=== PATIENT | male | born 1955 | race Caucasian/White ===

== ENCOUNTER 2024-06-22 15:56 | Outpatient (CLI) | payer BC ==
[2024-06-22 16:55] LABS: Hemoglobin 16.6 g/dL (13.5-17.5)
[2024-06-22 17:18] LABS: Anion Gap 17 mmol/L (10-20); BUN (Urea Nitrogen) 21 mg/dL (8.4-25.7); Calc. Creatinine Clearance 0 mL/min (70-130); Calcium 10.8 mg/dL (7.8-10.44); Carbon Dioxide 28 mmol/L (23-31); Chloride 101 mmol/L (98-107); Estimated GFR 50; Glucose 109 mg/dL (80-115); Sodium 142 mmol/L (136-145)
== END 2024-06-22 15:57 | disposition home or self-care (01) ==
LOC: CSHLAB 15:56
PROVIDERS: ATTEND Otolaryngology
DX: Z01.818 Encounter for other preprocedural examination (principal); R09.81 Nasal congestion; J34.3 Hypertrophy of nasal turbinates; J34.2 Deviated nasal septum
CPT/HCPCS: 80048; 85014; 85018; 93005; 93010

== ENCOUNTER 2024-07-05 06:15 | Day surgery (SDC) | payer BC ==
[2024-06-25 12:10] VITALS: BMI 33.6
[2024-07-05] MEDS ORDERED: EPINEPHrine 1 MG/ML VIAL ONE (06:38)
[2024-07-05] MEDS ORDERED: Lidocaine 1% (PF) 30 ML VIAL ONE (06:39)
[2024-07-05] MEDS ORDERED: CEFAZOLIN 2 GM VIAL ONE (06:39)
[2024-07-05] MEDS ORDERED: Ondansetron PF 4 MG/2 ML Vial ONE (08:00)
[2024-07-05] MEDS ORDERED: Dexamethasone 20 MG/5 ML VIAL ONE (08:00)
[2024-07-05] MEDS ORDERED: SUGAMMADEX SODIUM 200 MG/2 ML VIAL ONE (08:00)
[2024-07-05] MEDS ORDERED: Rocuronium Bromide 10 MG/ML (10ML VIAL) ONE ×2 (08:00→10:16)
[2024-07-05] MEDS ORDERED: PROPOFOL 40 ML ONE (08:01)
[2024-07-05] MEDS ORDERED: fentaNYL 50 mcg/mL 1 mL Vial ONE ×4 (08:01→12:20)
[2024-07-05] MEDS ORDERED: Midazolam HCl 2 mg/2 ml Vial ONE (08:01)
[2024-07-05] MEDS ORDERED: ePHEDrine Sulfate 50 MG/10 ML VIAL ONE (08:38)
[2024-07-05] MEDS ORDERED: Glycopyrrolate 0.2 MG/ML 5 ML SYRINGE ONE (08:57)
[2024-07-05] MEDS ORDERED: Vasopressin 20 UNITS/ML VIAL ONE (09:03)
[2024-07-05] MEDS ORDERED: Tranexamic Acid 1,000 MG/10 ML VIAL ONE (09:06)
[2024-07-05] MEDS ORDERED: Mupirocin 2% Ointment 22 GM Tube ONE (09:09)
[2024-07-05] MEDS ORDERED: Labetalol HCl 100 MG/20 ML VIAL ONE (11:06)
[2024-07-05] MEDS ORDERED: HYDROcodone/Acetaminophen 5/325 mg Tablet ONE (12:50)
== END 2024-07-05 13:25 | disposition home or self-care (01) ==
LOC: CSHSDC 06:15
PROVIDERS: ATTEND Otolaryngology
PROC: 09TL0ZZ Resection of Nasal Turbinate, Open Approach (ICD-10-PCS; principal; 2024-07-05)
PROC: 09BM0ZZ Excision of Nasal Septum, Open Approach (ICD-10-PCS; principal; 2024-07-05)
DX: J34.2 Deviated nasal septum (principal); J34.3 Hypertrophy of nasal turbinates; H69.83 Other specified disorders of Eustachian tube, bilateral; H90.3 Sensorineural hearing loss, bilateral; I10 Essential (primary) hypertension; E03.9 Hypothyroidism, unspecified; G47.33 Obstructive sleep apnea (adult) (pediatric); M10.9 Gout, unspecified; Z98.84 Bariatric surgery status; Z79.899 Other long term (current) drug therapy
CPT/HCPCS: J0171; J1100; J2250; J2405; J2704; J3010